=== PATIENT | female | born 1955 | race Caucasian/White ===

== ENCOUNTER 2022-09-12 08:50 | Outpatient (CLI) | payer MEDICARE, BC, SELFPAY | END 2022-09-12 08:51 | disposition home or self-care (01) | PROVIDERS: PCP Family Medicine; Referring Provider Family Medicine; Visit Provider Family Medicine | DX: Z01.419 Encounter for gynecological examination (general) (routine) without abnormal findings (principal); F41.9 Anxiety disorder, unspecified; M85.80 Other specified disorders of bone density and structure, unspecified site; E55.9 Vitamin D deficiency, unspecified; N95.2 Postmenopausal atrophic vaginitis | CPT/HCPCS: 80053; 80061; 82306 ==

== ENCOUNTER 2022-09-22 14:47 | Outpatient (CLI) | payer MEDICARE, BC, SELFPAY ==
--- NOTE | 2022-09-22 15:00 | CRLHL7_ITS ---
For Patients: As a result of the Cures Act, medical imaging exams and procedure reports are released immediately into your electronic medical record. You may view this report before your referring provider. If you have questions, please contact your health care provider. DXA BONE MINERAL DENSITY STUDY, 09/22/2022 Current height (in): 64.0. Weight (lb): 133.0. Menopause age: 48. Ethnicity: White. 1. Have you had a previous hip or vertebral fracture? No. 2. Have you had any fractures during your adult life which did not result from significant trauma (e.g., auto accident)? No. 3. Did either of your parents have a hip fracture? No. 4. Do you smoke? No. 5. Have you ever taken Glucocorticoids? No. 6. Do you have rheumatoid arthritis? No. 7. Do you have secondary osteoporosis? No. 8. Do you drink 3 or more alcoholic drinks per day? No. 9. Are you being treated for osteoporosis? No. 10. Have you ever taken any of the following medications: Actonel, Evista, Fosamax, Miacalcin, Reclast, Boniva, Forteo, HRT (i.e. estrogen/hormone therapy), Protelos, Prolia, Vitamin D, Calcium, other ??? please specify. ANSWER: Yes, Vitamin D, Calcium. 11. Do you have any of the following medical conditions: Anorexia or bulimia, asthma or emphysema, end stage renal disease, hyperparathyroidism, any seizure disorders, cancer, inflammatory bowel diseases, hysterectomy, other ??? please specify. ANSWER: No. 12. What was your maximum height (inches)? 64. 13. Do you perform weight bearing exercise regularly? No. 14. Do you regularly consume dairy products? Yes. 15. Do you drink caffeinated beverages? Yes. 16. At what age did your period start? 9. 17. Are you premenopausal? No. 18. How many full term pregnancies have you had? 2. 19. Have you ever missed your period for more than 6 months in a row (not including or menopause)? No. TECHNIQUE: Bone mineral density study was performed using the [employer]. FINDINGS: The results of the study expressed as bone mineral density (BMD) are as follows: Lumbar spine L1 to L3: BMD: 0.869 g/cm2. T-score: -1.4. Z-score: 0.7. Neck Left: BMD: 0.648 g/cm2. T-score: -1.8 . Z-score: -0.1. Right: BMD: 0.610 g/cm2. T-score: -2.1 . Z-score: -0.4. Total Left: BMD: 0.776 g/cm2. T-score: -1.4 . Z-score: 0.1. Right: BMD: 0.798 g/cm2. T-score: -1.2 . Z-score: 0.3. IMPRESSION: Osteopenia. *Comparison exams done prior to 12/2019 were performed on different unit, [facility]. COMPARISON: Compared with scan of 07/18/2019, the bone mineral density has decreased by 4.3 percent at the spine increased by 3.8 percent at the hip. FRAX 10-year Fracture Risk Major Osteoporotic Fracture: 12 percent Hip Fracture: 2.4 percent Reported Risk Factors: [place] () Neck BMD=0.610, BMI=22.8 Jonny Monte M.D. Diagnostic Radiologist [email or web address] MADDI/dianne JR/Dictated by: Jonny Monte MD @ 09/23/2022 8:04:00 AM (Electronically Signed)
== END 2022-09-22 14:48 | disposition home or self-care (01) ==
LOC: RAD 14:48
PROVIDERS: PCP Family Medicine; Visit Provider Family Medicine
DX: M85.80 Other specified disorders of bone density and structure, unspecified site (principal); M85.89 Other specified disorders of bone density and structure, multiple sites; Z78.0 Asymptomatic menopausal state
CPT/HCPCS: 77080

== ENCOUNTER 2023-11-09 08:15 | Outpatient (CLI) | payer MEDICARE, BC, SELFPAY | END 2023-11-09 08:16 | disposition home or self-care (01) | LOC: NFLDREF 11-12 07:42 | PROVIDERS: PCP Family Medicine; Referring Provider Family Medicine; Visit Provider Family Medicine | DX: M85.80 Other specified disorders of bone density and structure, unspecified site (principal); E55.9 Vitamin D deficiency, unspecified; Z13.220 Encounter for screening for lipoid disorders | CPT/HCPCS: 80053; 80061; 82306 ==

== ENCOUNTER 2023-11-15 10:04 | Outpatient (CLI) | payer MEDICARE, BC, SELFPAY ==
--- NOTE | 2023-11-15 10:15 | MM_ITS ---
Patient: SHAUNA WHITE Facility:?[facility] Patient ID:?[id number] Site Patient ID:?[id number] Site :?[id number] Study:?XRay-Breast Bilateral 3D W/CAD-11/15/2023 10:45:22 AM Ordering Physician:Marycarmen Garza Final Report: BILATERAL SCREENING MAMMOGRAM WITH COMPUTER-AIDED DETECTION AND TOMOSYNTHESIS TECHNIQUE: CC and MLO views were obtained. These mammographic images have been obtained using full-field digital technique. These mammographic images were interpreted with the benefit of computer-aided detection. Breast Tomosynthesis was used in this interpretation. COMPARISON FILM: 11/08/22, 10/05/20, 09/05/19. FINDINGS: The breasts are heterogeneously dense, which may obscure small masses. IMPRESSION: There is no radiographic evidence for malignancy. ASSESSMENT: BI-RADS Category 1: Negative RECOMMENDATION: Routine screening mammogram in 1 year. A lay language report of this examination will be provided to the patient. Jonny Monte M.D. Diagnostic Radiologist [email or web address] DSM/sp D& Transcribed: 7:30 p.m. SP/Dictated by: Jonny Monte MD @ 11/15/2023 11:04:00 AM Signed by:Courtney Monte MD @11/15/2023 7:45:48 PM (Electronic Signature)
== END 2023-11-15 10:05 | disposition home or self-care (01) ==
LOC: MAMMO 10:05
PROVIDERS: PCP Family Medicine; Visit Provider Family Medicine
DX: Z12.31 Encounter for screening mammogram for malignant neoplasm of breast (principal); R92.2 Inconclusive mammogram
CPT/HCPCS: 77063; 77067

== ENCOUNTER 2024-01-09 12:13 | Outpatient (CLI) | payer MEDICARE, BC, SELFPAY ==
--- OUTSIDE RECORDS SUMMARY | 2024-01-09 12:15 | XMS_ITS | Clinical Summary ---
Author Organization [facility] Address [place], [place] [address] Care Team Providers Care Mother Tester Name Role Phone Pcp, No Primary Care Provider Unavailabl e Allergies No known active allergies Medications No known medications Active Problems Problem Noted Date Diagnosed Date MAJOR DEPR, SINGLE, FULL REMISSION 03/02/2009 Osteopenia 03/02/2009 Benign neoplasm of colon 02/16/2009 Overview: Colonoscopy 01/2009 polyp repeat in 5 years Resolved Problems Problem Noted Date Diagnosed Date Resolved Date Major depression in partial remission 01/30/2009 03/02/2009 Major depressive disorder, s golden episode in full remission 06/05/2007 01/30/2009 Immunizations Name Administration Dates Next Due Td (Age >=7 Years) 11/05/1999 Tdap 04/27/2010 Family History Medical History Relation Name Comments Heart Disease Father heart attack a t age 55- did not smoke Cancer-breast Maternal Aunt Cancer Mother uterine Heart Disease Mother chf- lived to 89 Relation Name Status Comments Father Maternal Aunt Mother Social History Tobacco Use Types Packs/Day Years Used Date Smoking Tobacco: Never Smokeless Tobacco: Never Alcohol Use Standard Drinks/Week Comments Yes 0 (1 standard drink = 0.6 oz pur e alcohol) 1-2 drinks per day Sex and Gender Information Value Date Recorded Sex Assigned at Not on file Gender Identity Not on file Sexual Orientation Not on file Obstetrics History Para Term AB IAB SAB Ectopic Multiple Livin g Live Births 2 2 Date Outcome GA Total Labor Labor/2nd/3rd Weight Sex Type Anes PTL Ingris A1 A5 Name Clin Last Filed Vital Signs Vital Sign Reading Time Taken Comments Blood Pressure 114/68 04/26/2017 3:54 PM CDT Pulse 74 04/26/2017 3:52 PM CDT Temperature 36.6 ??C (97.8 ??F) 07/31/2009 1:25 PM CS T Respiratory Rate - - Oxygen Saturation 98% 04/26/2017 3:52 PM CDT Inhaled Oxygen Concentration - - Weight 64.6 kg (142 lb 6.4 oz) 04/26/2017 3:52 P M CDT Height 162.6 cm (5' 4) 04/27/2010 4:08 PM CDT Body Mass Index 24.44 04/27/2010 4:08 PM CDT Plan of Treatment Health Maintenance Due Date Last Done Comments Depression screening for age 12+ 1965 BMI (ht and wt on same day) for age 18+ 1971 Hepatitis C screening for ag e 18-79 1971 Zoster (shingles) series for age 50+ (1 of 2) 2003 Mammogram for age 45-75 11/20/2013 11/21/19 13, 08/12/2011, 04/27/2010, Additional history exists Lipids for age 45-75 02/03/2014 02/03/2009 DEXA/DXA scan for age 65+ 2018 02/03/2009 Pneumococcal series for age 65+ (1 of 1 - PCV) 2018 Colonoscopy through age 75 02/12/2019 02/12/2009, Tetanus booster 04/27/2020 04/27/2010, 11/05/1999 COVID-19 vaccine series (2022-24 season) 2023 Influenza for age 65+ 03/03/2024 Tdap Completed 04/27/2010 Procedures Procedure Name Priority Date/Time Associated Diagnosis Comments SCAN-MAMMOGRAPHY REPORT 11/20/2012 12:00 AM CDT XR DXA BONE DENSITY 2 SITES AXIAL Routine 02/03/2009 8:37 AM CDT LIPID PANEL Routine 02/03/2009 8:22 AM CDT Lipid Screening SCAN-COLONOSCOPY 03/07/2002 12:0 0 AM CDT from Last 3 Months or Most Recently Relevant to Health Maintenance Results * SCAN-MAMMOGRAPHY REPORT (11/20/2012 12:00 AM CDT) Anatomical Region Laterality Modality Other Narrative 11/22/2012 12:38 PM CDT Procedure Note Scanner - 11/20/2012 12:00 AM CDT Scanner OTHER * XR DEXA BONE DENSITY 2 SITES (02/03/2009 8:37 AM CDT) Anatomical Region Laterality Modality Spine, HIPS, HIPL, HIPR Other 02/03/2009 8:37 AM CDT Narrative 02/04/2009 8:23 AM CDT Please see scanned document for results of this study. Procedure Note Donna Nelson PA - 02/04/2009 Please see scanned document for results of this study. Ashley Esquivel NP DEXA * LIPID (02/03/2009 8:22 AM CDT) CHOLESTEROL,TOTAL 192 110 - 199 mg/dL [facility] TRIGLYCERIDES 86 <150 mg/dL [facility] HDL CHOLESTEROL 90 >40 mg/dL [facility] CHOL/HDL RATIO 2.[address] [facility] LDL CHOLESTEROL 85 <131 mg/dL [facility] PATIENT STATUS Fasting [facility] Blood specimen (specimen) BLOOD SPECIMEN / Unknown 02/03/2009 8:22 AM CDT 02/03/2009 8:17 AM CDT Ashley Esquivel NP CHEMISTRY [facility] [address] [place] [address] * SCAN-COLONOSCOPY (03/07/2002 12:00 AM CDT) Narrative Procedure Note Scanner - 03/07/2002 12:00 AM CDT Scanner OTHER from Last 3 Months or Most Recently Relevant to Health Maintenance Care Teams Mother Tester Relationship Specialty Start Date End Date Pcp, No . PCP - General 08/26/15
== END 2024-01-09 12:14 | disposition home or self-care (01) ==
PROVIDERS: PCP Family Medicine; Visit Provider Obstetrics & Gynecology
DX: R68.82 Decreased libido (principal)
CPT/HCPCS: 84270; 84402; 84403; 84443

== ENCOUNTER 2024-11-26 07:50 | Outpatient (CLI) | payer MEDICARE, BC, SELFPAY | END 2024-11-26 07:51 | disposition home or self-care (01) | LOC: NFLDREF 11-28 15:35 | PROVIDERS: PCP Family Medicine; Referring Provider Family Medicine; Visit Provider Family Medicine | DX: E78.5 Hyperlipidemia, unspecified (principal); E55.9 Vitamin D deficiency, unspecified | CPT/HCPCS: 80053; 80061; 82306 ==